=== PATIENT | female | born 1930 | race Caucasian/White ===

== ENCOUNTER 2017-01-06 19:07 | Inpatient (IN) | payer MEDICARE, OTHER ==
[~2017-01-06] VITALS: Ht 175.3 cm; Wt 81.6 kg
[2017-01-06 09:34] VITALS: BP 98/56
[~2017-01-06 19:07] MED LIST: ACET650T10 PO; ALEN70TA3 PO; ASPI81TA5 PO; ATOR10TA GT; BISA10SU8 RC; CELE200C PO; CLOT15CR4 TP; CYAN500T4 PO; DOCU-270 PO; DULO20CA PO; Fluconazole PO; GABA-536 PO; INSU100C7 SQ; MEMA5TAB PO; METO25TA20 PO; OLOP5DRO3 OP; OMEP20TA68 PO; POLY17PO4 PO
[2017-01-06 19:33] LABS: BASOPHILS # (AUTO) 0.5 /CMM (0.0-0.2); BASOPHILS % (AUTO) 3.1 % (0.0-2.0); EOSINOPHILS # (AUTO) 0.2 /CMM (0.0-0.7); EOSINOPHILS % (AUTO) 1.3 % (0.0-6.0); HEMATOCRIT 48 % (33-45); HEMOGLOBIN 16.2 g/dL (11.5-14.8); LYMPHOCYTES # (AUTO) 3.3 /CMM (0.8-4.8); LYMPHOCYTES % (AUTO) 20.1 % (20.0-44.0); MEAN CORPUSCULAR HEMOGLOBIN 29 PG (26.0-33.0); MEAN CORPUSCULAR HGB CONC 34 g/dl (31.0-36.0); MEAN CORPUSCULAR VOLUME 86 fL (82-100); MONOCYTES # (AUTO) 0.9 /CMM (0.1-1.30); MONOCYTES % (AUTO) 5.4 % (2.0-12.0); NEUTROPHILS # (AUTO) 11.4 /CMM (1.8-8.9); NEUTROPHILS % (AUTO) 70.1 % (43.0-81.0); PLATELET COUNT (AUTO) 301 /CMM (150-450); RDW COEFFICIENT OF VARIATION 12.6 (11.5-15.0); RED BLOOD CELL COUNT(AUTO) 5.54 MIL/uL (4.0-5.2); WHITE BLOOD COUNT (AUTO) 16.3 K/uL (4.3-11.0)
[2017-01-06 19:48] LABS: INR 0.99 (0.87-1.13); PROTHROMBIN TIME 10.3 SECS (9.5-12.7)
[2017-01-06 20:17] LABS: CALCIUM, SERUM 9.8 mg/dL (8.5-10.1); CARBON DIOXIDE 24 mmol/L (21-32); CHLORIDE 104 mmol/L (98-107); CREATININE 2.3 mg/dL (0.6-1.3); GLUCOSE 153 mg/dL (74-106); POTASSIUM 5.5 mmol/L (3.5-5.1); SODIUM SERUM 138 mmol/L (136-145); UREA NITROGEN, BLOOD 38 mg/dL (7-18)
[2017-01-06 20:22] LABS: ALANINE AMINOTRANSFERASE 64 U/L (12-78); ALBUMIN 3.5 g/dL (3.4-5.0); ALKALINE PHOSPHATASE 66 U/L (46-116); ASPARTATE AMINOTRANSFERASE 50 U/L (15-37); BILIRUBIN,DIRECT 0.1 mg/dL (0.0-0.2); BILIRUBIN,TOTAL 0.5 mg/dL (0.2-1.0); TOTAL PROTEIN, SERUM 7.4 g/dL (6.4-8.2)
[2017-01-06 20:24] LABS: TROPONIN I < 0.017 ng/mL (0.00-0.056)
[2017-01-06 21:18] LABS: APPEARANCE,URINE Clear (CLEAR); BILIRUBIN,URINE Negative (NEGATIVE); BLOOD, URINE Trace-intact Ery/uL (NEGATIVE); COLOR,URINE Yellow (YELLOW); KETONES,URINE Negative (NEGATIVE); LEUKOCYTE ESTERASE ,URINE Negative (NEGATIVE); NITRITE, URINE Positive (NEGATIVE); PH,URINE 5.5 (5.0-8.0); PROTEIN,URINE Trace mg/dl (NEGATIVE); UGLUCOSE Negative (NEGATIVE); UROBILINOGEN,URINE 0.2 EU/dL (0.2)
[2017-01-06 21:35] VITALS: BP 98/56
[2017-01-06 21:46] LABS: RBC,URINE 2-3/HPF /HPF (0-2); WBC,URINE 0-2 /HPF (0-3)
[2017-01-06 21:47] LABS: BACTERIA,URINE Many /HPF (None Seen); SQUAMOUS EPITHELIAL CELL,UR Few /HPF (None Seen); URINE AMORPHOUS URATE Few /HPF (None Seen)
[2017-01-07 02:16] VITALS: BP 105/56
[2017-01-07 04:00] VITALS: BP 129/79
[2017-01-07 06:53] LABS: BASOPHILS # (AUTO) 0.1 /CMM (0.0-0.2); BASOPHILS % (AUTO) 0.5 % (0.0-2.0); EOSINOPHILS # (AUTO) 0.4 /CMM (0.0-0.7); EOSINOPHILS % (AUTO) 3.4 % (0.0-6.0); HEMATOCRIT 44 % (33-45); HEMOGLOBIN 14.4 g/dL (11.5-14.8); LYMPHOCYTES # (AUTO) 4.7 /CMM (0.8-4.8); LYMPHOCYTES % (AUTO) 40.2 % (20.0-44.0); MEAN CORPUSCULAR HEMOGLOBIN 29 PG (26.0-33.0); MEAN CORPUSCULAR HGB CONC 33 g/dl (31.0-36.0); MEAN CORPUSCULAR VOLUME 89 fL (82-100); MONOCYTES # (AUTO) 1.2 /CMM (0.1-1.30); MONOCYTES % (AUTO) 10.6 % (2.0-12.0); NEUTROPHILS # (AUTO) 5.2 /CMM (1.8-8.9); NEUTROPHILS % (AUTO) 45.3 % (43.0-81.0); PLATELET COUNT (AUTO) 248 /CMM (150-450); RDW COEFFICIENT OF VARIATION 13.6 (11.5-15.0); RED BLOOD CELL COUNT(AUTO) 4.92 MIL/uL (4.0-5.2); WHITE BLOOD COUNT (AUTO) 11.6 K/uL (4.3-11.0)
[2017-01-07 07:32] LABS: ALANINE AMINOTRANSFERASE 55 U/L (12-78); ALKALINE PHOSPHATASE 49 U/L (46-116); ASPARTATE AMINOTRANSFERASE 37 U/L (15-37); BILIRUBIN,TOTAL 0.3 mg/dL (0.2-1.0); CALCIUM, SERUM 8.7 mg/dL (8.5-10.1); CARBON DIOXIDE 22 mmol/L (21-32); CHLORIDE 110 mmol/L (98-107); CREATININE 2.2 mg/dL (0.6-1.3); GLUCOSE 112 mg/dL (74-106); PHOSPHORUS 5.1 mg/dL (2.5-4.9); POTASSIUM 4.8 mmol/L (3.5-5.1); SODIUM SERUM 143 mmol/L (136-145); TOTAL PROTEIN, SERUM 6.7 g/dL (6.4-8.2); UREA NITROGEN, BLOOD 42 mg/dL (7-18)
[2017-01-07 08:00] VITALS: BP 102/53
[2017-01-07 09:39] LABS: CHOLESTEROL 173 mg/dL (<200); HDL CHOLESTEROL 28 mg/dL (40-60); LDL 109 mg/dL (0-99); TRIGLYCERIDES 247 mg/dL (30-150)
[2017-01-07 10:53] LABS: TROPONIN I < 0.017 ng/mL (0.00-0.056)
[2017-01-07 10:55] LABS: THYROID STIMULATING HORMONE 1.338 uIU/mL (0.358-3.74)
[2017-01-07 12:00] VITALS: BP 139/62
[2017-01-07 16:00] VITALS: BP 104/58
[2017-01-07 20:00] VITALS: BP 141/67
[2017-01-08 06:33] LABS: BASOPHILS % (AUTO) 0.5 % (0.0-2.0); EOSINOPHILS # (AUTO) 0.4 /CMM (0.0-0.7); HEMATOCRIT 39 % (33-45); HEMOGLOBIN 13.1 g/dL (11.5-14.8); LYMPHOCYTES # (AUTO) 3.2 /CMM (0.8-4.8); LYMPHOCYTES % (AUTO) 34.3 % (20.0-44.0); MEAN CORPUSCULAR HEMOGLOBIN 30 PG (26.0-33.0); MEAN CORPUSCULAR HGB CONC 34 g/dl (31.0-36.0); MEAN CORPUSCULAR VOLUME 88 fL (82-100); MONOCYTES # (AUTO) 0.7 /CMM (0.1-1.30); MONOCYTES % (AUTO) 7.5 % (2.0-12.0); NEUTROPHILS % (AUTO) 53.7 % (43.0-81.0); PLATELET COUNT (AUTO) 218 /CMM (150-450); RDW COEFFICIENT OF VARIATION 13.5 (11.5-15.0); WHITE BLOOD COUNT (AUTO) 9.4 K/uL (4.3-11.0)
[2017-01-08 06:58] LABS: TROPONIN I < 0.017 ng/mL (0.00-0.056)
[2017-01-08 07:00] LABS: ALANINE AMINOTRANSFERASE 44 U/L (12-78); ALBUMIN 2.7 g/dL (3.4-5.0); ALKALINE PHOSPHATASE 50 U/L (46-116); ASPARTATE AMINOTRANSFERASE 26 U/L (15-37); BILIRUBIN,TOTAL 0.3 mg/dL (0.2-1.0); CALCIUM, SERUM 8.5 mg/dL (8.5-10.1); CARBON DIOXIDE 21 mmol/L (21-32); CHLORIDE 112 mmol/L (98-107); CREATININE 1.3 mg/dL (0.6-1.3); GLUCOSE 132 mg/dL (74-106); PHOSPHORUS 2.8 mg/dL (2.5-4.9); POTASSIUM 4.4 mmol/L (3.5-5.1); SODIUM SERUM 143 mmol/L (136-145); TOTAL PROTEIN, SERUM 6.2 g/dL (6.4-8.2); UREA NITROGEN, BLOOD 32 mg/dL (7-18)
[2017-01-08 08:00] VITALS: BP_SYST 139; BP_SYST 157; BP_SYST 158; BP_DIAS 101; BP_DIAS 66; BP_DIAS 74; BP_DIAS 78
[2017-01-08 16:00] VITALS: BP 140/84
[2017-01-08 18:00] VITALS: BP 140/84
[2017-01-08 20:00] VITALS: BP 154/70
[2017-01-09 07:19] VITALS: BP_SYST 153; BP_SYST 155; BP_DIAS 82; BP_DIAS 96
[2017-01-09 07:49] LABS: BASOPHILS % (AUTO) 0.3 % (0.0-2.0); EOSINOPHILS # (AUTO) 0.4 /CMM (0.0-0.7); EOSINOPHILS % (AUTO) 3.6 % (0.0-6.0); HEMATOCRIT 39 % (33-45); HEMOGLOBIN 13.5 g/dL (11.5-14.8); LYMPHOCYTES # (AUTO) 3.6 /CMM (0.8-4.8); LYMPHOCYTES % (AUTO) 31.2 % (20.0-44.0); MEAN CORPUSCULAR HEMOGLOBIN 30 PG (26.0-33.0); MEAN CORPUSCULAR HGB CONC 34 g/dl (31.0-36.0); MEAN CORPUSCULAR VOLUME 87 fL (82-100); MONOCYTES # (AUTO) 0.9 /CMM (0.1-1.30); MONOCYTES % (AUTO) 7.5 % (2.0-12.0); NEUTROPHILS # (AUTO) 6.6 /CMM (1.8-8.9); NEUTROPHILS % (AUTO) 57.4 % (43.0-81.0); PLATELET COUNT (AUTO) 236 /CMM (150-450); RDW COEFFICIENT OF VARIATION 13.2 (11.5-15.0); WHITE BLOOD COUNT (AUTO) 11.4 K/uL (4.3-11.0)
[2017-01-09 08:00] VITALS: BP_SYST 148; BP_SYST 149; BP_SYST 167; BP_DIAS 66; BP_DIAS 80; BP_DIAS 84
[2017-01-09 08:04] LABS: ALANINE AMINOTRANSFERASE 50 U/L (12-78); ALKALINE PHOSPHATASE 61 U/L (46-116); ASPARTATE AMINOTRANSFERASE 33 U/L (15-37); BILIRUBIN,TOTAL 0.4 mg/dL (0.2-1.0); CALCIUM, SERUM 8.3 mg/dL (8.5-10.1); CARBON DIOXIDE 21 mmol/L (21-32); CHLORIDE 108 mmol/L (98-107); CREATININE 0.9 mg/dL (0.6-1.3); GLUCOSE 130 mg/dL (74-106); MAGNESIUM 1.5 mg/dL (1.8-2.4); POTASSIUM 4.2 mmol/L (3.5-5.1); SODIUM SERUM 140 mmol/L (136-145); TOTAL PROTEIN, SERUM 6.7 g/dL (6.4-8.2); UREA NITROGEN, BLOOD 19 mg/dL (7-18)
[2017-01-09] MEDS ORDERED: NITR100C6 PO (11:35)
[2017-01-09 16:00] VITALS: BP 137/84
[2017-01-09 17:06] VITALS: BP 137/84
== END 2017-01-09 18:24 | DRG 177 ==
LOC: ER 19:09 → TELE 20:42 → MED 01-07 13:09
PROVIDERS: ADMIT Internal Medicine; ATTEND Internal Medicine
DX: J69.0 Pneumonitis due to inhalation of food and vomit (principal); N17.0 Acute kidney failure with tubular necrosis; E87.2 Acidosis; G93.41 Metabolic encephalopathy; N39.0 Urinary tract infection, site not specified; I42.9 Cardiomyopathy, unspecified; F03.90 Unspecified dementia, unspecified severity, without behavioral disturbance, psychotic disturbance, mood disturbance, and anxiety; E11.9 Type 2 diabetes mellitus without complications; E78.5 Hyperlipidemia, unspecified; E86.0 Dehydration; E87.5 Hyperkalemia; I10 Essential (primary) hypertension; I67.2 Cerebral atherosclerosis; K21.9 Gastro-esophageal reflux disease without esophagitis; K57.30 Diverticulosis of large intestine without perforation or abscess without bleeding; M81.0 Age-related osteoporosis without current pathological fracture; Z88.1 Allergy status to other antibiotic agents; Z88.0 Allergy status to penicillin; Z79.4 Long term (current) use of insulin
CPT/HCPCS: 36415; 70450-TC; 71010-TC; 71250-TC; 80048-TC; 80053-TC; 80061-TC; 80076-TC; 81000-TC; 82962-TC; 83605-TC; 83735-TC; 84100-TC; 84439-TC; 84443-TC; 84484-TC; 85025-TC; 85652-TC; 85730-TC; 87040-TC; 87081-TC; 87086-TC; 92611-TC; 93307-TC; 93880-TC; A4216; A4606; J1644; J1650; J1815; J2185; J3370; J3475; J3490; J7030; J7040; J7060; Z7610

== ENCOUNTER 2017-01-23 13:18 | Emergency (ER) | payer MEDICARE, OTHER ==
[~2017-01-23] VITALS: Ht 165.1 cm; Wt 81.6 kg
[~2017-01-23 13:18] MED LIST changes: -ATOR10TA GT; +ATOR10TA PO; +NITR100C6 PO
--- NOTE | 2017-01-23 13:45 | NUR ---
BIB [facility] C/O HEADACHE S/P TRIP AND FALL, DENIES LOC, NECK, OR BACK PAIN. A/OX 4. BREATHING EVEN AND UNLABORED. NO SOB. VITALS STABLE. SAFETY AND COMFORT MEASURES IN PLACE. AWAITING MD ORDERS.
[2017-01-23] MEDS ORDERED: POLY15DR40 EACHEYE (14:26)
[2017-01-23] MEDS ORDERED: OMEG1CAP PO (14:26)
[2017-01-23] MEDS ORDERED: INSU100V11 SQ ×2 (14:26)
[2017-01-23] MEDS ORDERED: CALC-7 PO (14:26)
[2017-01-23] MEDS ORDERED: MELO-270 PO (14:26)
[2017-01-23] MEDS ORDERED: INSU100V7 SQ (14:26)
[2017-01-23] MEDS ORDERED: LISI40TA4 PO (14:26)
[2017-01-23] MEDS ORDERED: BLOO-668 IN (14:26)
--- NOTE | 2017-01-23 14:45 | NUR ---
patient taken to ct via stretcher.
--- NOTE | 2017-01-23 14:55 | NUR ---
patient returned from ct.
--- NOTE | 2017-01-23 16:24 | NUR ---
CALLED [facility] FOR TRANSPORTATION GOING BACK TO [facility] ETA 1800
--- NOTE | 2017-01-23 16:35 | NUR ---
PAGED PATIENT'S PCP DR ARIAS
--- NOTE | 2017-01-23 17:30 | NUR ---
CONFIRMED WITH PCP, TRANG EMERY FOR DISCHARGE.
--- NOTE | 2017-01-23 18:57 | NUR ---
Patient discharged to assisted living in stable condition. Written and verbal after care instructions given. Patient's PMD is aware of the discharge back to [place]; Ml [facility]ISON
[2017-01-23 19:00] VITALS: BP 137/78
== END 2017-01-23 18:59 | disposition home or self-care (01) ==
LOC: ER 13:20
DX: S09.90XA Unspecified injury of head, initial encounter (principal); R51 Headache; E11.9 Type 2 diabetes mellitus without complications; E78.5 Hyperlipidemia, unspecified; F03.90 Unspecified dementia, unspecified severity, without behavioral disturbance, psychotic disturbance, mood disturbance, and anxiety; I10 Essential (primary) hypertension; I42.9 Cardiomyopathy, unspecified; F32.9 Major depressive disorder, single episode, unspecified; K21.9 Gastro-esophageal reflux disease without esophagitis; M81.0 Age-related osteoporosis without current pathological fracture; Z79.4 Long term (current) use of insulin; Z79.82 Long term (current) use of aspirin; Z88.0 Allergy status to penicillin; Z88.1 Allergy status to other antibiotic agents; W01.0XXA Fall on same level from slipping, tripping and stumbling without subsequent striking against object, initial encounter; Y93.89 Activity, other specified; Y92.89 Other specified places as the place of occurrence of the external cause; Y99.9 Unspecified external cause status
CPT/HCPCS: 70450-TC; A4606; Z7610

== ENCOUNTER 2018-01-14 16:32 | Inpatient (IN) | payer MEDICARE, OTHER ==
[~2018-01-14] VITALS: Ht 165.1 cm; Wt 74.8 kg
[~2018-01-14 16:32] MED LIST changes: -BISA10SU8 RC; +BLOO-668 IN; +CALC-7 PO; -CELE200C PO; -CLOT15CR4 TP; -DULO20CA PO; -Fluconazole PO; +INSU100V11 SQ; +INSU100V7 SQ; +LISI40TA4 PO; +MELO-105 PO; -NITR100C6 PO; -OLOP5DRO3 OP; +OMEG1CAP PO; -OMEP20TA68 PO; +POLY15DR40 EACHEYE; -POLY17PO4 PO
--- NOTE | 2018-01-14 16:35 | NUR ---
NAD NOTED, VSS, RESP EVEN AND UNLABORED, PT WAS PUT ON MONITOR, WAITING FOR MD EVAL. [place] PRIVATE EMT FROM [facility], ABDOMINAL X 3 DAYS ABN. LABS (BUN/CREA= /1.51)
[2018-01-14 17:26] LABS: BASOPHILS # (AUTO) 0.1 /CMM (0.0-0.2); BASOPHILS % (AUTO) 0.9 % (0.0-2.0); EOSINOPHILS % (AUTO) 5.3 % (0.0-6.0); HEMATOCRIT 47 % (33-45); HEMOGLOBIN 15.8 g/dL (11.5-14.8); LYMPHOCYTES # (AUTO) 3.2 /CMM (0.8-4.8); LYMPHOCYTES % (AUTO) 34.4 % (20.0-44.0); MEAN CORPUSCULAR HEMOGLOBIN 28 PG (26.0-33.0); MEAN CORPUSCULAR HGB CONC 34 g/dl (31.0-36.0); MEAN CORPUSCULAR VOLUME 85 fL (82-100); MONOCYTES # (AUTO) 0.8 /CMM (0.1-1.30); MONOCYTES % (AUTO) 8.4 % (2.0-12.0); NEUTROPHILS # (AUTO) 4.7 /CMM (1.8-8.9); PLATELET COUNT (AUTO) 304 /CMM (150-450); RDW COEFFICIENT OF VARIATION 12.9 (11.5-15.0); RED BLOOD CELL COUNT(AUTO) 5.55 MIL/uL (4.0-5.2); WHITE BLOOD COUNT (AUTO) 9.3 K/uL (4.3-11.0)
[2018-01-14] MEDS ORDERED: IOHEXOL-300 100 ML VIAL IV ONE (17:36)
[2018-01-14 17:40] LABS: ALANINE AMINOTRANSFERASE 51 U/L (12-78); ALBUMIN 3.3 g/dL (3.4-5.0); ALKALINE PHOSPHATASE 92 U/L (46-116); ASPARTATE AMINOTRANSFERASE 37 U/L (15-37); BILIRUBIN,DIRECT 0.1 mg/dL (0.0-0.2); BILIRUBIN,TOTAL 0.3 mg/dL (0.2-1.0); CALCIUM, SERUM 9.4 mg/dL (8.5-10.1); CARBON DIOXIDE 27 mmol/L (21-32); CHLORIDE 100 mmol/L (98-107); CREATININE 1.3 mg/dL (0.6-1.3); LIPASE 349 U/L (73-393); POTASSIUM 3.8 mmol/L (3.5-5.1); SODIUM SERUM 132 mmol/L (136-145); TOTAL PROTEIN, SERUM 7.7 g/dL (6.4-8.2); UREA NITROGEN, BLOOD 28 mg/dL (7-18)
[2018-01-14 17:41] LABS: GLUCOSE 368 mg/dL (74-106); INR 0.94 (0.85-1.15)
[2018-01-14] MEDS ORDERED: IV NS 0.9% 500 ML BAG IV ONE (18:00)
[2018-01-14 18:56] LABS: APPEARANCE,URINE Slightly Cloudy (CLEAR); BILIRUBIN,URINE Negative (NEGATIVE); BLOOD, URINE Trace-intact Ery/uL (NEGATIVE); COLOR,URINE Yellow (YELLOW); KETONES,URINE Negative (NEGATIVE); LEUKOCYTE ESTERASE ,URINE Negative (NEGATIVE); NITRITE, URINE Positive (NEGATIVE); PROTEIN,URINE 30 mg/dl (NEGATIVE); UGLUCOSE 500 MG/DL mg/dL (NEGATIVE); UROBILINOGEN,URINE 0.2 EU/dL (0.2)
[2018-01-14] MEDS ORDERED: Z GUARD REMEDY 2 OZ OINT TP PRN (19:00)
[2018-01-14] MEDS ORDERED: MAG HYDROX/AL HYDROX/SIMETH 30 ML UDC PO PRN (19:00)
[2018-01-14] MEDS ORDERED: MAGNESIUM HYDROXIDE 30 ML UDC PO PRN (19:00)
[2018-01-14] MEDS ORDERED: ONDANSETRON HCL/PF 4 MG/2 ML VIAL IVP PRN (19:00)
[2018-01-14] MEDS ORDERED: HYDROCODONE/APAP 5/325MG 1 EACH TABLET PO PRN (19:00)
[2018-01-14] MEDS ORDERED: Medication Not On Formulary EA (Acetaminophen 650 MG) PO PRN (19:00)
[2018-01-14] MEDS ORDERED: ACETAMINOPHEN 325 MG TABLET PO PRN (19:00)
[2018-01-14] MEDS ORDERED: ZOLPIDEM TARTRATE 5 MG TABLET PO PRN (19:00)
[2018-01-14] MEDS ORDERED: DULO20CA PO (19:12)
[2018-01-14 19:16] LABS: BACTERIA,URINE Many /HPF (None Seen); SQUAMOUS EPITHELIAL CELL,UR Few /HPF (None Seen); URINE AMORPHOUS URATE Few /HPF (None Seen)
--- NOTE | 2018-01-14 19:29 | NUR ---
PT RESTING EYES CLOSED, EASILY AWAKEN WITH VERBAL STIMULI. ABD PAIN 10 & THONY WELL. DENIES CP, SOB, DIZZINESS, N/V/D @ THIS TIME. WILL CONT TO MONITOR.
[2018-01-14] MEDS ORDERED: MEROPENEM 500 MG in IV NS 0.9% 50 ML IV ONE (19:30)
--- NOTE | 2018-01-14 20:06 | NUR ---
Jose morales in ED - 01/14/18 at 2007 by ALFREDA PT IS ASSIGNED TO MED SURG RM#: [id number] CYSTITIS, DEHYDRATION, HYPERGLYCEMIA, AND ACCEPTING MD: DR ARIAS
--- NOTE | 2018-01-14 20:07 | NUR ---
PT IS ASSIGNED TO MED SURG RM#[id number], Dx: ACUTE CYSTITIS, DEHYDRATION, HYPERGLYCEMIA, AND ACCEPTING MD: DR ARIAS
[2018-01-14 21:30] VITALS: BP 148/78
--- NOTE | 2018-01-14 21:30 | NUR ---
MS RN NOTES PT RECEIVE VIA GURNEY FROM [facility] WITH 1 TRANSPORTATION MARIO ALBERTO. ADMIT TO M/S WITH DIAGNOSIS OF UTI, PT A/O X3 WITH PERIOD OF FORGETFULNESS, TOLERATING ROOM AIR 98%. HEAD TO TOE ASSESSMENT IS DONE SKIN IS INTACT, RESPIRATIONS EVEN AND UNLABORED NO COMPLAIN OF PAIN AT THIS TIME. PT GIVEN 1 TUNA SANDWICH AND 8 OZ OF APPLE JUICE,. NEEDS ATTENDED AND ANTICIPATED, KEPT CLEAN AND COMFORTABLE, F/C INTACT DRAINING YELLOW VIA GRAVITY WITH NO SEDIMENTS NO HEMATURIA,NO CLOUDINESS, SAFETY MEASURES IN PLACE. WILL CONTINUE TO MONITOR.
[2018-01-14] MEDS: ATORVASTATIN 10 MG TABLET PO SCH (21:39)
[2018-01-14] MEDS: BLOOD SUGAR DIAGNOSTIC 1 EACH STRIP IN SCH (21:41)
[2018-01-14] MEDS: METOPROLOL TARTRATE 25 MG TABLET PO SCH (21:41)
[2018-01-14] MEDS ORDERED: INSULIN GLARGINE, 100 UNIT/ML CARTRIDGE SQ SCH (22:00)
[2018-01-14] MEDS ORDERED: GABAPENTIN 400 MG CAPSULE ONE (22:07)
[2018-01-14] MEDS: GABAPENTIN 400 MG CAPSULE PO SCH (22:09)
--- NOTE | 2018-01-14 22:09 | NUR ---
MS RN NOTES GABAPENTIN OVERRIDE 400 MG GIVEN PO.
[2018-01-14] MEDS: IV NS 0.9% 1,000 ML IV PRN (22:10)
[2018-01-14] MEDS: CEFTRIAXONE 1 G in IV D5W 50 ML IV SCH (23:46)
[2018-01-15] MEDS: BLOOD SUGAR DIAGNOSTIC 1 EACH STRIP IN SCH ×4 (05:37→21:11)
--- NOTE | 2018-01-15 05:56 | NUR ---
MS RN CLOSING NOTES ASLEEP AND EASILY AWAKEN, STABLE, TOLERATING ROOM AIR 100%. NOT IN DISTRESS. RESPIRATION EVEN AND UNLABORED. KEPT CLEAN AND DRY AND COMFORTABLE, ALL NURSING CARE RENDERED. NEEDS ATTENDED AND ANTICIPATED. REPOSITIONED EVERY 2 HOURS. GOOD SKIN CARE PROVIDED. F/C INTACT DRAINING YELLOW VIA GRAVITY WITH NO SEDIMENTS, NO HEMATURIA, NO CLOUDINESS. ON LOW BED AT ALL TIMES TO ENSURE SAFETY. SAFE HAZARD FREE ENVIRONMENT PROVIDED. CALL LIGHT WITHIN EASY TO REACH. WILL ENDORSE NEXT SHIFT CONTINUITY OF CARE.
[2018-01-15 08:00] VITALS: BP 155/81
--- NOTE | 2018-01-15 08:00 | NUR ---
MS RN NOTES PT A/O X3 WITH PERIOD OF FORGETFULNESS, TOLERATING ROOM AIR 98%. HEAD TO TOE ASSESSMENT IS DONE SKIN IS INTACT WITH SACRAL SCAR.-SEEN BY WOUND LOCK STITCH CHANNELER,[place]. RESPIRATIONS EVEN AND UNLABORED NO COMPLAIN OF PAIN AT THIS TIME. NEEDS ATTENDED AND ANTICIPATED, KEPT CLEAN AND COMFORTABLE, F/C INTACT DRAINING YELLOW VIA GRAVITY WITH NO SEDIMENTS NO HEMATURIA,NO CLOUDINESS, SAFETY MEASURES IN PLACE. CALL LIGHT PLACED WITHIN REACH.WILL CONTINUE TO MONITOR.
--- NOTE | 2018-01-15 08:25 | NUR ---
WOUND CARE CONSULT: PT PRESENTS WITH THICKENED RT GREAT TOENAIL. NO TENDERNESS NOTED. PT INCONTINENT. SACRAL/BUTTOCKS SCARRING NOTED. WILL SEE PRN. ALL SKIN PROTECTION RECOMMENDATIONS DISCUSSED WITH NURSING STAFF. PT ON DANILO ISOFLEX LOW AIRLOSS BED. CURRENT ELIZ SCORE IS 16. Addendum: 01/15/18 at 0828 by NYA LENZ WNDNU Amended: Links added.
[2018-01-15] MEDS ORDERED: CALCIUM CARB 250MG /VITAMIN D 1 UDTAB PO SCH (09:00)
[2018-01-15] MEDS ORDERED: MELOXICAM 7.5 MG TABLET PO SCH (09:00)
[2018-01-15] MEDS ORDERED: LISINOPRIL (20MG) 20 MG TABLET PO SCH (09:00)
[2018-01-15] MEDS ORDERED: Medication Not On Formulary EA (Omega-3 Fatty Acids/Fish Oil (Fish Oil 1,000 Mg Capsule) PO SCH (09:00)
[2018-01-15] MEDS ORDERED: INSULIN GLARGINE HUM REC ANLOG 50 UNIT SQ SCH (09:00)
[2018-01-15 09:25] LABS: BASOPHILS # (AUTO) 0.1 /CMM (0.0-0.2); BASOPHILS % (AUTO) 0.7 % (0.0-2.0); EOSINOPHILS % (AUTO) 5.1 % (0.0-6.0); HEMATOCRIT 48 % (33-45); HEMOGLOBIN 15.4 g/dL (11.5-14.8); LYMPHOCYTES % (AUTO) 32.1 % (20.0-44.0); MEAN CORPUSCULAR HEMOGLOBIN 28 PG (26.0-33.0); MEAN CORPUSCULAR HGB CONC 32 g/dl (31.0-36.0); MEAN CORPUSCULAR VOLUME 88 fL (82-100); MONOCYTES # (AUTO) 0.7 /CMM (0.1-1.30); MONOCYTES % (AUTO) 7.7 % (2.0-12.0); NEUTROPHILS % (AUTO) 54.4 % (43.0-81.0); PLATELET COUNT (AUTO) 300 /CMM (150-450); RDW COEFFICIENT OF VARIATION 13.9 (11.5-15.0); RED BLOOD CELL COUNT(AUTO) 5.53 MIL/uL (4.0-5.2); WHITE BLOOD COUNT (AUTO) 9.2 K/uL (4.3-11.0)
[2018-01-15] MEDS: DOCUSATE SODIUM 100 MG CAPSULE PO SCH ×2 (09:25→17:14)
[2018-01-15] MEDS: MEMANTINE HCL 5 MG TABLET PO SCH ×2 (09:26→17:14)
[2018-01-15] MEDS: CYANOCOBALAMIN 500 MCG TABLET PO SCH (09:26)
[2018-01-15] MEDS: METOPROLOL TARTRATE 25 MG TABLET PO SCH ×2 (09:26→21:11)
[2018-01-15] MEDS: ASPIRIN EC 81 MG TABLET.DR PO SCH (09:26)
[2018-01-15] MEDS: GABAPENTIN 400 MG CAPSULE PO SCH ×2 (09:29→21:11)
[2018-01-15] MEDS: INSULIN ASPART/LISPRO 100 UNIT/ML CARTRIDGE SQ SCH ×3 (09:34→17:15)
[2018-01-15 09:43] LABS: ALANINE AMINOTRANSFERASE 41 U/L (12-78); ALBUMIN 3.1 g/dL (3.4-5.0); ALKALINE PHOSPHATASE 70 U/L (46-116); ASPARTATE AMINOTRANSFERASE 31 U/L (15-37); BILIRUBIN,TOTAL 0.4 mg/dL (0.2-1.0); CARBON DIOXIDE 24 mmol/L (21-32); CHLORIDE 102 mmol/L (98-107); CHOLESTEROL 206 mg/dL (<200); GLUCOSE 240 mg/dL (74-106); HDL CHOLESTEROL 33 mg/dL (40-60); LDL 153 mg/dL (0-99); POTASSIUM 3.5 mmol/L (3.5-5.1); SODIUM SERUM 137 mmol/L (136-145); TOTAL PROTEIN, SERUM 7.4 g/dL (6.4-8.2); TRIGLYCERIDES 239 mg/dL (30-150); UREA NITROGEN, BLOOD 20 mg/dL (7-18)
[2018-01-15] MEDS: IV NS 0.9% 1,000 ML IV PRN (13:29)
[2018-01-15 16:00] VITALS: BP 149/74
--- NOTE | 2018-01-15 19:30 | NUR ---
PATIENT RECEIVED IN BED AWAKE, AO X 2, ABLE TO MAKE NEEDS KNOWN. NO ACUTE DISTRESS NOTED. DENIES ANY PAIN AT THIS TIME. NO SYMPTOMS OF HYPER/HYPOGLYCEMIA. IV SITE PATENT, INTACT; IVF INFUSING ORDERED. [place] CATH PATENT, INTACT; DRAINING CLEAR YELLOW URINE. SAFETY REMINDERS GIVEN. ON LOW BED WITH BILATERAL UPPER SIDE RAILS UP. CALL RIDLEY WITHIN EASY REACH. WILL CONTINUE TO MONITOR.
--- NOTE | 2018-01-15 19:35 | NUR ---
PT RESTING IN BED WITH ONGOING IVF NS AT 75 ML/HR INFUSING WELL.DENIES PAIN OR DISTRESS.CALL LIGHT PLACED WITHIN REACH.
[2018-01-15 20:00] VITALS: BP 149/73
[2018-01-15] MEDS: ATORVASTATIN 10 MG TABLET PO SCH (21:11)
[2018-01-15] MEDS: INSULIN GLARGINE, 100 UNIT/ML CARTRIDGE SQ SCH (21:15)
[2018-01-15] MEDS: CEFTRIAXONE 1 G in IV D5W 50 ML IV SCH (22:01)
[2018-01-16] MEDS: IV NS 0.9% 1,000 ML IV PRN ×2 (03:07→17:15)
[2018-01-16] MEDS: BLOOD SUGAR DIAGNOSTIC 1 EACH STRIP IN SCH ×4 (06:30→21:22)
--- NOTE | 2018-01-16 06:45 | NUR ---
PATIENT ASLEEP, EASILY AROUSABLE. RESPIRATIONS EVEN. NO SIGNS OF PAIN NOTED. DUE MEDS GIVEN WITH NO ASE NOTED. IVF INFUSING ORDERED. NEEDS ATTENDED. KEPT CLEAN, DRY, AND COMFORTABLE. SAFETY PRECAUTIONS AND COMFORT MEASURES IN PLACE. WILL GIVE REPORT TO DAY SHIFT FOR CONTINUITY OF CARE.
[2018-01-16 08:00] VITALS: BP 145/72
[2018-01-16] MEDS: INSULIN ASPART/LISPRO 100 UNIT/ML CARTRIDGE SQ SCH ×3 (08:00→17:19)
--- NOTE | 2018-01-16 08:24 | NUR ---
RN NOTES INSULIN HELD AT THIS TIME, DUE TO PATIENT REFUSING TO EAT BREAKFAST. WILL MONITOR FOR S/SX OF HYPO/HYPERGLYCEMIA
[2018-01-16] MEDS: METOPROLOL TARTRATE 25 MG TABLET PO SCH ×2 (08:50→21:22)
[2018-01-16] MEDS: CYANOCOBALAMIN 500 MCG TABLET PO SCH (08:50)
[2018-01-16] MEDS: ASPIRIN EC 81 MG TABLET.DR PO SCH (08:50)
[2018-01-16] MEDS: MEMANTINE HCL 5 MG TABLET PO SCH ×2 (08:50→17:10)
[2018-01-16] MEDS: GABAPENTIN 400 MG CAPSULE PO SCH ×2 (08:50→21:22)
[2018-01-16] MEDS: DOCUSATE SODIUM 100 MG CAPSULE PO SCH ×2 (08:50→17:10)
[2018-01-16 16:00] VITALS: BP 144/69
--- NOTE | 2018-01-16 18:30 | NUR ---
RN NOTES PATIENT A/OX2, SLEEPING INTERMITTENTLY, ABLE TO VERBALIZE NEEDS, TURNED AND REPOSITION EVERY 2 HOURS, KEPT COMFORTABLE, CALL LIGHT WITHIN REACH, WILL ENDORSE TO SECURITY ORDERLY FOR MIGEL.
--- NOTE | 2018-01-16 19:20 | NUR ---
RN INITIAL NOTES: RECEIVED REPORT FROM VICTOR MANUEL DON. PT IN BED, SLEEPING, AROUSES TO TACTILE STIMULI. PT IS A/O X 2, ON RA RESPIRATION EVEN AND UNLABORED. LEFT WRIST IV ACCESS G20 PATENT AND FLUSHING WELL, NO S/S OF INFILTRATION OR REDNESS NOTED. PT APPEARS CALM AND COMFORTABLE. BLE OFFLOADED. [place] CATHETER IN PLACED, DRAINING INTO YELLOW COLORED URINE. SAFETY PRECAUTIONS FOR FALL INITIATED, CALL LIGHT IN REACH, WILL CONTINUE MONITORING PT.
[2018-01-16 20:00] VITALS: BP 142/82
[2018-01-16 21:17] VITALS: BP 163/80
[2018-01-16] MEDS: ATORVASTATIN 10 MG TABLET PO SCH (21:22)
[2018-01-16] MEDS: INSULIN GLARGINE, 100 UNIT/ML CARTRIDGE SQ SCH (21:53)
--- NOTE | 2018-01-16 21:54 | NUR ---
non administration of lantus 38 units: checked pt's blood sugar and result obtained was 105. pt has a schedule lantus 38units for tonight, pt stated she's not comfortable receiving the lantus as her blood sugar is good/normal. Lantus 38 units not administered at this time due to risk for hypoglycemia. Will monitor pt for any s/s of hypoglycemia or hyperglycemia
--- NOTE | 2018-01-16 22:00 | NUR ---
RN NOTES: PROVIDED PT WITH JELL O AND EGG SAND WHICH PER PT REQUEST, PT CONSUMED MEAL 100%, NO ASPIRATION NOTED.
[2018-01-16] MEDS: CEFTRIAXONE 1 G in IV D5W 50 ML IV SCH (22:09)
[2018-01-17] MEDS: IV NS 0.9% 1,000 ML IV PRN (05:52)
--- NOTE | 2018-01-17 06:59 | NUR ---
RN CLOSING NOTES: PT IN BED, REMAINS A/O X2, DENIES ANY SOB, DENIES ANY CHEST PAIN OR DISCOMFORT AT THIS TIME. IV ACCESS ON LEFT WRIST G20 REMAINS PATENT AND FLUSHING WELL, INFUSING WITH NS AT 75ML/HR. BLE OFFLOADED. [place] CATHETER REMAINS IN PLACED, BAG EMPTIED BY PRODUCT DEVELOPER. VS REMAINS STABLE, NEEDS ATTENDED. SAFETY PRECAUTIONS FOR FALL REMAINS ENGAGED, CALL LIGHT IN REACH, WILL ENDORSE TO DAY RN FOR CONTINUITY OF CARE.
--- NOTE | 2018-01-17 07:40 | NUR ---
RN OPENING NOTES RECEIVED PATIENT RESTING IN BED, A/OX2-3. NO ACUTE DISTRESS, NO SOB, DENIED PAIN OR DISCOMFORT AT THIS TIME. IV SITE INTACT AND PATENT. [place] IN PLACE DRAINING CLEAR YELLOW URINE. KEPT PATIENT SAFE AND COMFORTABLE. BED IN LOW/LOCKED POSITION, SIDERAILS UPX2, CALL LIGHT IN REACH. WILL CONTINUE TO MONITOR ACCORDINGLY
[2018-01-17 08:00] VITALS: BP 159/98
[2018-01-17 08:28] VITALS: BP 159/98
[2018-01-17] MEDS: METOPROLOL TARTRATE 25 MG TABLET PO SCH (08:28)
[2018-01-17] MEDS: GABAPENTIN 400 MG CAPSULE PO SCH (08:28)
[2018-01-17] MEDS: MEMANTINE HCL 5 MG TABLET PO SCH (08:29)
[2018-01-17] MEDS: ASPIRIN EC 81 MG TABLET.DR PO SCH (08:30)
[2018-01-17] MEDS: DOCUSATE SODIUM 100 MG CAPSULE PO SCH (08:30)
[2018-01-17] MEDS: CYANOCOBALAMIN 500 MCG TABLET PO SCH (08:30)
[2018-01-17] MEDS: INSULIN ASPART/LISPRO 100 UNIT/ML CARTRIDGE SQ SCH ×2 (08:41→12:31)
[2018-01-17] MEDS: BLOOD SUGAR DIAGNOSTIC 1 EACH STRIP IN SCH ×2 (08:44→12:28)
--- NOTE | 2018-01-17 08:55 | NUR ---
DR ARIAS AT BEDSIDE TALKING TO PATIENT. Emi/C OCTAVIO PER .
--- NOTE | 2018-01-17 09:15 | NUR ---
RN NOTES D/C [place], NO BLEEDING, NO COMPLICATIONS. TOLERATED WELL.
--- NOTE | 2018-01-17 15:30 | NUR ---
Discharged patient in stable condition picked up by 2 ambulance crew, patient going back to [facility]. Discharge paperwork and all belongings returned and given to playground attendant. Report given to FLORENICA Hernandez from [facility], [place] instructions given to patient and SNF RN, verbalized understanding. Removed iv, applied pressure, no bleeding, no complications. Removed name band. Photos taken
[2018-01-20] MEDS ORDERED: ALENDRONATE 70 MG TABLET PO SCH (07:30)
== END 2018-01-17 15:30 | DRG 689 ==
LOC: ER 16:35 → MEDSG2 20:15
PROVIDERS: ADMIT Internal Medicine; ATTEND Internal Medicine
DX: N39.0 Urinary tract infection, site not specified (principal); N17.0 Acute kidney failure with tubular necrosis; E11.65 Type 2 diabetes mellitus with hyperglycemia; K57.90 Diverticulosis of intestine, part unspecified, without perforation or abscess without bleeding; K21.9 Gastro-esophageal reflux disease without esophagitis; F03.90 Unspecified dementia, unspecified severity, without behavioral disturbance, psychotic disturbance, mood disturbance, and anxiety; I10 Essential (primary) hypertension; E78.5 Hyperlipidemia, unspecified; M81.0 Age-related osteoporosis without current pathological fracture; E88.09 Other disorders of plasma-protein metabolism, not elsewhere classified; Z88.0 Allergy status to penicillin; Z79.4 Long term (current) use of insulin; B96.20 Unspecified Escherichia coli [E. coli] as the cause of diseases classified elsewhere
CPT/HCPCS: 36415; 71045-TC; 80048-TC; 80053-TC; 80061-TC; 80076-TC; 81000-TC; 82962-TC; 83690-TC; 83735-TC; 84100-TC; 85025-TC; 85730-TC; 87081-TC; 87086-TC; 87186-TC; 97110-TC; 97112-TC; 97530-TC; A4216; A4606; J0696; J1815; J2185; J7030; J7040; J7060; Q9967; Z7610

== ENCOUNTER 2018-04-29 06:05 | Inpatient (IN) | payer MEDICARE, OTHER ==
[~2018-04-29] VITALS: Ht 165.1 cm; Wt 78.0 kg
[~2018-04-29 06:05] MED LIST changes: -CALC-7 PO; +DULO20CA PO; -INSU100V7 SQ; -LISI40TA4 PO; -MELO-105 PO; -OMEG1CAP PO; -POLY15DR40 EACHEYE
--- NOTE | 2018-04-29 06:20 | NUR ---
PT [facility]IB[facility] C/O L ABD PAIN, TENDER TO PALPATION. MINIMAL RELIEF WITH NORCO 3/325, -N/V/D. PT AOX2. PT ON MONITOR IN BED 7. WILL CONTINUE TO MONITOR.
--- NOTE | 2018-04-29 06:25 | NUR ---
BLOOD DRAWN AND GIVEN TO LAB
[2018-04-29 06:34] LABS: BASOPHILS # (AUTO) 0.1 /CMM (0.0-0.2); BASOPHILS % (AUTO) 0.6 % (0.0-2.0); EOSINOPHILS % (AUTO) 1.7 % (0.0-6.0); HEMATOCRIT 46 % (33-45); HEMOGLOBIN 15.6 g/dL (11.5-14.8); LYMPHOCYTES # (AUTO) 3.3 /CMM (0.8-4.8); LYMPHOCYTES % (AUTO) 21.3 % (20.0-44.0); MEAN CORPUSCULAR HGB CONC 34 g/dl (31.0-36.0); MEAN CORPUSCULAR VOLUME 86 fL (82-100); MONOCYTES # (AUTO) 1.1 /CMM (0.1-1.30); NEUTROPHILS # (AUTO) 10.8 /CMM (1.8-8.9); NEUTROPHILS % (AUTO) 69.4 % (43.0-81.0); PLATELET COUNT (AUTO) 288 /CMM (150-450); RED BLOOD CELL COUNT(AUTO) 5.32 MIL/uL (4.0-5.2); WHITE BLOOD COUNT (AUTO) 15.5 K/uL (4.3-11.0)
--- NOTE | 2018-04-29 06:39 | NUR ---
TECH AT BEDSIDE FOR EKG
[2018-04-29 06:41] LABS: CALCIUM, SERUM 9.4 mg/dL (8.5-10.1); CARBON DIOXIDE 25 mmol/L (21-32); CHLORIDE 102 mmol/L (98-107); GLUCOSE 184 mg/dL (74-106); POTASSIUM 3.9 mmol/L (3.5-5.1); SODIUM SERUM 138 mmol/L (136-145); UREA NITROGEN, BLOOD 18 mg/dL (7-18)
[2018-04-29 06:47] LABS: ALANINE AMINOTRANSFERASE 57 U/L (12-78); ALBUMIN 3.3 g/dL (3.4-5.0); ALKALINE PHOSPHATASE 85 U/L (46-116); ASPARTATE AMINOTRANSFERASE 35 U/L (15-37); BILIRUBIN,DIRECT 0.2 mg/dL (0.0-0.2); BILIRUBIN,TOTAL 0.6 mg/dL (0.2-1.0); LIPASE 215 U/L (73-393); TOTAL PROTEIN, SERUM 7.8 g/dL (6.4-8.2)
[2018-04-29] MEDS ORDERED: CT SWABBABLE VALVE TRANS SET 1 EA INFUS.SET MC ONE (07:08)
[2018-04-29] MEDS ORDERED: IV NS 0.9% 250 ML IV ONE (07:08)
[2018-04-29] MEDS ORDERED: IOHEXOL-300 100 ML VIAL IV ONE (07:08)
--- NOTE | 2018-04-29 07:11 | NUR ---
REPORT GIVEN TO LEANN CHAWLA RN FOR MIGEL
--- NOTE | 2018-04-29 07:18 | NUR ---
RECEIVED REPORT FOR MARKUS DON, PT IS IN CT SCAN.
--- NOTE | 2018-04-29 07:29 | NUR ---
PT IS BACK FROM THE CT SCAN. AWAITING RESULT.
[2018-04-29] MEDS ORDERED: ONDANSETRON HCL/PF 4 MG/2 ML VIAL ONE (07:33)
[2018-04-29] MEDS ORDERED: MORPHINE SULFATE INJ 4 MG/ML DISP.SYRIN ONE (07:34)
--- NOTE | 2018-04-29 07:48 | NUR ---
URINE COLLECTED AND SENT LAB. AWAITING RESULT.
[2018-04-29 07:54] LABS: APPEARANCE,URINE TURBID (CLEAR); BILIRUBIN,URINE NEGATIVE (NEGATIVE); BLOOD, URINE 1+ Ery/uL (NEGATIVE); COLOR,URINE YELLOW (YELLOW); KETONES,URINE NEGATIVE (NEGATIVE); LEUKOCYTE ESTERASE ,URINE 1+ (NEGATIVE); NITRITE, URINE POSITIVE (NEGATIVE); PROTEIN,URINE 2+ mg/dl (NEGATIVE); UGLUCOSE NEGATIVE (NEGATIVE); UROBILINOGEN,URINE 0.2 EU/dL (0.2)
[2018-04-29] MEDS ORDERED: ONDANSETRON HCL/PF - ER 4 MG/2 ML VIAL IV ONE (08:00)
[2018-04-29] MEDS ORDERED: IV NS 0.9% 500 ML BAG IV ONE (08:00)
[2018-04-29] MEDS ORDERED: MORPHINE SULFATE INJ 2 MG/ML DISP.SYRIN IV ONE (08:00)
[2018-04-29 08:06] LABS: BACTERIA,URINE Many /HPF (None Seen); WBC,URINE TOO NUMEROUS TO COUN /HPF (0-3)
[2018-04-29 08:07] LABS: SQUAMOUS EPITHELIAL CELL,UR Few /HPF (None Seen)
[2018-04-29] MEDS ORDERED: TOBRAMYCIN 80 MG in IV D5W 50 ML IV ONE (08:30)
[2018-04-29] MEDS ORDERED: IV NS 0.9% 1,000 ML BAG IV ONE (09:00)
--- NOTE | 2018-04-29 09:05 | NUR ---
PAGED VILLA MARKHAM NP.
--- NOTE | 2018-04-29 10:27 | NUR ---
REPORT GIVEN TO FLORENCIA HAGAN FOR MIGEL, IV NS STILL INFUSING.
[2018-04-29] MEDS ORDERED: HYDROCODONE/APAP 5/325MG 1 EACH TABLET PO PRN (11:30)
[2018-04-29] MEDS ORDERED: ZOLPIDEM TARTRATE 5 MG TABLET PO PRN (11:30)
[2018-04-29] MEDS ORDERED: Z GUARD REMEDY 2 OZ OINT TP PRN (11:30)
--- NOTE | 2018-04-29 11:30 | NUR ---
KASIA BREAKER OPERATOR NOTES RECEIVED PT FROM ER TO ROOM 115-2 VIA GURNEY.ALERT/ORIENTED X2 WITH ANXIETY AND CONFUSION.ON TELE HR IS 100 WITH SR.ON ROOM AIR,TOLERATING WELL.NO SOB AND ACUTE DISTRESS NOTED.IV LINE IS ON LEFT HAND G20,SITE SI CLEAN,DRY AND INTACT.NO INFILTRATION NOTED.SKIN ASSESSMENT IS DONE AND NOTED WITH MILD REDNESS ON PERINEAL AND B/L KNEES.PHOTO TAKEN AND PLACED IN THE CHART.VITAL SIGNS CHECKED AND RECORDED.COMPLAINTS OF PAIN 9/10 ON ABDOMEN. SAFETY IS MAINTAINED AT ALL TIMES.BED IS IN LO POSITION AND LOCKED.CALL LIGHT IS WITHIN REACH.WILL CONTINUE TO MONITOR THE PT PAIN LEVEL.
[2018-04-29 12:00] VITALS: BP 169/81
[2018-04-29] MEDS: IV NS 0.9% 1,000 ML IV PRN (12:03)
[2018-04-29] MEDS ORDERED: DEXTROSE 50%-WATER 50 ML DISP.SYRIN IV PRN (12:30)
--- NOTE | 2018-04-29 12:30 | NUR ---
KASIA RN NOTES LAB REPORTED LACTIC ACID 3.3 AND REPORTED TO EVERETT SALINASO NOTED.
[2018-04-29] MEDS: BLOOD SUGAR DIAGNOSTIC 1 EACH STRIP IN SCH ×3 (13:03→21:49)
[2018-04-29] MEDS ORDERED: FEE PK DOSING 1 MIN EA MC ONE (14:14)
[2018-04-29 16:00] VITALS: BP 139/67
[2018-04-29] MEDS: DOCUSATE SODIUM 100 MG CAPSULE PO SCH (16:45)
[2018-04-29] MEDS: MEMANTINE HCL 5 MG TABLET PO SCH (16:45)
[2018-04-29] MEDS: METOPROLOL TARTRATE 25 MG TABLET PO SCH (16:45)
[2018-04-29] MEDS: INSULIN REGULAR, HUMAN 100 UNIT/ML 3 ML VIAL SQ PRN ×2 (16:51→21:49)
[2018-04-29] MEDS ORDERED: IV NS 0.9% 500 ML IV ONE (17:30)
[2018-04-29] MEDS: ENOXAPARIN SODIUM 40 MG/0.4 ML DISP.SYRIN SQ SCH (18:07)
--- NOTE | 2018-04-29 18:40 | NUR ---
KASIA RN NOTES FOUR H CLUB AGENT ALESSANDRO ORDERED IV NS 500 ML IN 0ML/HR AND LOVENOX 4ML SQ.NEW ORDERS NOTED AND CARRIED OUT.
--- NOTE | 2018-04-29 18:51 | NUR ---
KASIA RN CLOSING NOTES PT IS ON BED.HAD FOOD WITH MINIMAL ASSISTANCE,NO SIGNS OF ASPIRATION NOTED.PM MEDS ARE GIVEN.VITAL SIGNS ARE CHECKED AND RECORDED.NO SOB AND ACUTE DISTRESS NOTED ON ROOM AIR,TOLERATING WELL.RESPIRATION ARE EVEN AND NONLABORED.STILL COMPLAINS OF PAIN ON ABDOMEN.ENDORSED TO INSURANCE ANALYST RN FOR MIGEL.
--- NOTE | 2018-04-29 19:10 | NUR ---
TD/RN INITIAL NOTES RECEIVED PT IN BED, ALERTX1, APPEARS CONFUSED. VPACING 100% ON TELEMONITOR. ON ROOM AIR, TOLERATING WELL. NO C/O PAIN AT THIS TIME. WITH ONGOING IVF NS AT 75 ML/HR INFUSING WELL ON LFA G20 IV. HOB ELEVATED. SAFETY MEASURES IN PLACED. CALL LIGHT WITHIN EASY REACH. WILL CONT TO MONITOR
[2018-04-29 20:00] VITALS: BP 163/74
[2018-04-29] MEDS: GABAPENTIN 400 MG CAPSULE PO SCH (20:35)
[2018-04-29] MEDS: ACETAMINOPHEN 325 MG TABLET PO PRN (20:36)
--- NOTE | 2018-04-29 21:00 | NUR ---
RN NOTES RECHECKED TEMPT=98.8, IN=506/77
[2018-04-29] MEDS: ATORVASTATIN 10 MG TABLET PO SCH (21:17)
[2018-04-30] VITALS: BP 135/64
[2018-04-30 04:00] VITALS: BP 137/71
[2018-04-30] MEDS: IV NS 0.9% 1,000 ML IV PRN ×2 (06:11→19:33)
--- NOTE | 2018-04-30 07:05 | NUR ---
RN NOTES RECEIVED PT ON BED, ALERT/ CONFUSED. ON RA , RESPIRATION EVEN AN UNLABORED, ON TELE SR WITH PVC'S AT THIS TIME, NO DISTRESS NOTED, IVF NS AT 75 ML/HR INFUSING VIA L FA IV SITE G 20 , SITE CLEAN, DRY AND INTACT, HOB ELEVATED. SR UP X3, CALL LIGHT WITHIN EASY REACH, BED LOCKED AND IN LOWEST POSITION, SAFETY MEASURES IN PLACED. CONT TO MONITOR.
--- NOTE | 2018-04-30 07:05 | NUR ---
RN NOTES PT IN STABLE CONDITION. NO ACUTE CHANGES THROUGHOUT SHIFT. ALL NEEDS ANTICIPATED. SAFETY MEASURES OBSERVED AT ALL TIMES. ENDORSED TO AM SHIFT RN FOR MIGEL
[2018-04-30 08:00] VITALS: BP 123/82
[2018-04-30] MEDS: BLOOD SUGAR DIAGNOSTIC 1 EACH STRIP IN SCH ×4 (08:41→21:29)
[2018-04-30] MEDS: DOCUSATE SODIUM 100 MG CAPSULE PO SCH ×2 (08:41→16:19)
[2018-04-30] MEDS: CYANOCOBALAMIN 500 MCG TABLET PO SCH (08:41)
[2018-04-30] MEDS: ASPIRIN EC 81 MG TABLET.DR PO SCH (08:42)
[2018-04-30] MEDS: METOPROLOL TARTRATE 25 MG TABLET PO SCH ×2 (08:43→16:20)
[2018-04-30] MEDS: GABAPENTIN 400 MG CAPSULE PO SCH ×2 (08:44→21:30)
[2018-04-30] MEDS: MEMANTINE HCL 5 MG TABLET PO SCH ×2 (08:44→16:19)
[2018-04-30] MEDS: TOBRAMYCIN 80 MG in IV D5W 50 ML IV SCH (09:05)
[2018-04-30 09:24] LABS: BASOPHILS # (AUTO) 0.1 /CMM (0.0-0.2); BASOPHILS % (AUTO) 0.7 % (0.0-2.0); EOSINOPHILS % (AUTO) 2.9 % (0.0-6.0); HEMATOCRIT 43 % (33-45); HEMOGLOBIN 14.5 g/dL (11.5-14.8); LYMPHOCYTES # (AUTO) 3.3 /CMM (0.8-4.8); LYMPHOCYTES % (AUTO) 32.2 % (20.0-44.0); MEAN CORPUSCULAR HGB CONC 34 g/dl (31.0-36.0); MEAN CORPUSCULAR VOLUME 87 fL (82-100); MONOCYTES # (AUTO) 0.8 /CMM (0.1-1.30); MONOCYTES % (AUTO) 7.6 % (2.0-12.0); NEUTROPHILS # (AUTO) 5.9 /CMM (1.8-8.9); NEUTROPHILS % (AUTO) 56.6 % (43.0-81.0); PLATELET COUNT (AUTO) 249 /CMM (150-450); WHITE BLOOD COUNT (AUTO) 10.4 K/uL (4.3-11.0)
[2018-04-30 09:36] LABS: CHOLESTEROL 136 mg/dL (<200); HDL CHOLESTEROL 36 mg/dL (40-60); LDL 83 mg/dL (0-99); TRIGLYCERIDES 142 mg/dL (30-150)
[2018-04-30 09:43] LABS: CALCIUM, SERUM 8.3 mg/dL (8.5-10.1); CARBON DIOXIDE 25 mmol/L (21-32); CHLORIDE 104 mmol/L (98-107); CREATININE 0.9 mg/dL (0.6-1.3); GLUCOSE 183 mg/dL (74-106); MAGNESIUM 1.9 mg/dL (1.8-2.4); PHOSPHORUS 2.4 mg/dL (2.5-4.9); POTASSIUM 3.8 mmol/L (3.5-5.1); SODIUM SERUM 136 mmol/L (136-145); UREA NITROGEN, BLOOD 13 mg/dL (7-18)
[2018-04-30] MEDS: INSULIN REGULAR, HUMAN 100 UNIT/ML 3 ML VIAL SQ PRN ×2 (11:38→21:29)
[2018-04-30 12:00] VITALS: BP_SYST 131; BP_SYST 142; BP_DIAS 68; BP_DIAS 79
[2018-04-30] MEDS ORDERED: K PHOS NEUTRAL 250 MG TABLET PO ONE (12:00)
--- NOTE | 2018-04-30 12:00 | NUR ---
RN NOTES PT STABLE, IVF NS AT 75CC/HR RUNNING , SR UP X3, CALL LIGHT WITHIN EASY REACH, BED LOCKED AND IN LOWEST POSITION, WILL ENDOSE TO CLIENT SERVICE REPRESENTATIVE NURSE FOR CONTINUITY OF CARE . Addendum: 04/30/18 at 1901 by PRETTY CONRAD RN ABOVE CHARTING IS FOR 19:01
[2018-04-30 16:00] VITALS: BP 149/78
--- NOTE | 2018-04-30 16:39 | NUR ---
Patient resides at [facility] [phone].She is altered, poor historian and requires max assist with adl's.Current dc plan is to return to . Addendum: 04/30/18 at 1639 by ROBERTO CARLOS SUAREZ RN Amended: Links added.
--- NOTE | 2018-04-30 19:01 | NUR ---
RN NOTES PT STABLE, IVF NS AT 75CC/HR RUNNING , SR UP X3, CALL LIGHT WITHIN EASY REACH, BED LOCKED AND IN LOWEST POSITION, WILL ENDOSE TO DIGITAL ASSOCIATE NURSE FOR CONTINUITY OF CARE .
[2018-04-30 20:00] VITALS: BP 152/73
[2018-04-30] MEDS: ENOXAPARIN SODIUM 40 MG/0.4 ML DISP.SYRIN SQ SCH (21:29)
[2018-04-30] MEDS: ATORVASTATIN 10 MG TABLET PO SCH (21:30)
[2018-04-30] MEDS: ACETAMINOPHEN 325 MG TABLET PO PRN (21:30)
[2018-05-01 04:00] VITALS: BP 155/80
--- NOTE | 2018-05-01 07:30 | NUR ---
INITIal RECEIVED PT IN BED, ALERTX1, APPEARS CONFUSED. VPACING 100% ON TELEMONITOR. ON ROOM AIR, TOLERATING WELL. NO C/O PAIN AT THIS TIME. WITH ONGOING IVF NS AT 75 ML/HR INFUSING WELL ON LFA G20 IV. HOB ELEVATED. SAFETY MEASURES IN PLACED. CALL LIGHT WITHIN EASY REACH. WILL CONT TO MONITOR
[2018-05-01] MEDS: BLOOD SUGAR DIAGNOSTIC 1 EACH STRIP IN SCH ×4 (07:42→22:11)
[2018-05-01] MEDS: INSULIN REGULAR, HUMAN 100 UNIT/ML 3 ML VIAL SQ PRN ×4 (07:52→22:17)
[2018-05-01 08:00] VITALS: BP 181/85
[2018-05-01] MEDS: ASPIRIN EC 81 MG TABLET.DR PO SCH (08:06)
[2018-05-01] MEDS: ONDANSETRON HCL/PF 4 MG/2 ML VIAL IVP PRN ×2 (08:06→10:50)
[2018-05-01] MEDS: GABAPENTIN 400 MG CAPSULE PO SCH ×2 (08:06→22:10)
[2018-05-01] MEDS: DOCUSATE SODIUM 100 MG CAPSULE PO SCH ×2 (08:07→16:51)
[2018-05-01] MEDS: MEMANTINE HCL 5 MG TABLET PO SCH ×2 (08:08→16:51)
[2018-05-01] MEDS: CYANOCOBALAMIN 500 MCG TABLET PO SCH (08:08)
[2018-05-01] MEDS: METOPROLOL TARTRATE 25 MG TABLET PO SCH ×2 (08:21→16:51)
[2018-05-01 08:24] LABS: CALCIUM, SERUM 8.9 mg/dL (8.5-10.1); CARBON DIOXIDE 26 mmol/L (21-32); CHLORIDE 104 mmol/L (98-107); CREATININE 0.9 mg/dL (0.6-1.3); GLUCOSE 126 mg/dL (74-106); MAGNESIUM 2.1 mg/dL (1.8-2.4); PHOSPHORUS 2.7 mg/dL (2.5-4.9); POTASSIUM 3.8 mmol/L (3.5-5.1); SODIUM SERUM 138 mmol/L (136-145); UREA NITROGEN, BLOOD 14 mg/dL (7-18)
[2018-05-01] MEDS ORDERED: DULOXETINE HCL 20 MG CAPSULE.DR PO SCH (09:00)
[2018-05-01 10:33] LABS: BASOPHILS % (AUTO) 0.4 % (0.0-2.0); EOSINOPHILS % (AUTO) 2.5 % (0.0-6.0); HEMATOCRIT 43 % (33-45); HEMOGLOBIN 14.7 g/dL (11.5-14.8); LYMPHOCYTES # (AUTO) 2.2 /CMM (0.8-4.8); LYMPHOCYTES % (AUTO) 20.4 % (20.0-44.0); MEAN CORPUSCULAR HGB CONC 34 g/dl (31.0-36.0); MEAN CORPUSCULAR VOLUME 86 fL (82-100); MONOCYTES # (AUTO) 0.8 /CMM (0.1-1.30); MONOCYTES % (AUTO) 6.9 % (2.0-12.0); NEUTROPHILS # (AUTO) 7.6 /CMM (1.8-8.9); NEUTROPHILS % (AUTO) 69.8 % (43.0-81.0); PLATELET COUNT (AUTO) 266 /CMM (150-450); RED BLOOD CELL COUNT(AUTO) 4.99 MIL/uL (4.0-5.2); WHITE BLOOD COUNT (AUTO) 10.9 K/uL (4.3-11.0)
[2018-05-01] MEDS: TOBRAMYCIN 80 MG in IV D5W 50 ML IV SCH (10:50)
[2018-05-01] MEDS ORDERED: BISACODYL SUPP (10 MG) 10 MG/SUPP.RECT SUPP.RECT RC PRN (11:00)
[2018-05-01 12:00] VITALS: BP 181/88
--- NOTE | 2018-05-01 18:55 | NUR ---
SUMMARY PT IS ON BED.HAD FOOD WITH MINIMAL ASSISTANCE,NO SIGNS OF ASPIRATION NOTED.PM MEDS ARE GIVEN.VITAL SIGNS ARE CHECKED AND RECORDED.NO SOB AND ACUTE DISTRESS NOTED ON ROOM AIR,TOLERATING WELL.RESPIRATION ARE EVEN AND NONLABORED.STILL COMPLAINS OF PAIN PT GIEN SUPPOSITRY NO BOWEL MOVEMENT
[2018-05-01 20:00] VITALS: BP 158/89
[2018-05-01] MEDS: ENOXAPARIN SODIUM 40 MG/0.4 ML DISP.SYRIN SQ SCH (22:10)
[2018-05-01] MEDS: ATORVASTATIN 10 MG TABLET PO SCH (22:10)
[2018-05-01] MEDS: IV NS 0.9% 1,000 ML IV PRN (22:40)
[2018-05-02 04:00] VITALS: BP 150/81
[2018-05-02 07:00] LABS: BASOPHILS % (AUTO) 0.5 % (0.0-2.0); EOSINOPHILS % (AUTO) 3.7 % (0.0-6.0); HEMATOCRIT 41 % (33-45); HEMOGLOBIN 13.7 g/dL (11.5-14.8); LYMPHOCYTES # (AUTO) 3.1 /CMM (0.8-4.8); LYMPHOCYTES % (AUTO) 33.2 % (20.0-44.0); MEAN CORPUSCULAR HGB CONC 34 g/dl (31.0-36.0); MEAN CORPUSCULAR VOLUME 86 fL (82-100); MONOCYTES # (AUTO) 0.9 /CMM (0.1-1.30); MONOCYTES % (AUTO) 9.2 % (2.0-12.0); NEUTROPHILS # (AUTO) 4.9 /CMM (1.8-8.9); NEUTROPHILS % (AUTO) 53.4 % (43.0-81.0); PLATELET COUNT (AUTO) 257 /CMM (150-450); RED BLOOD CELL COUNT(AUTO) 4.73 MIL/uL (4.0-5.2); WHITE BLOOD COUNT (AUTO) 9.2 K/uL (4.3-11.0)
[2018-05-02 07:05] LABS: CALCIUM, SERUM 8.2 mg/dL (8.5-10.1); CARBON DIOXIDE 25 mmol/L (21-32); CHLORIDE 104 mmol/L (98-107); GLUCOSE 178 mg/dL (74-106); MAGNESIUM 1.9 mg/dL (1.8-2.4); PHOSPHORUS 2.4 mg/dL (2.5-4.9); POTASSIUM 3.6 mmol/L (3.5-5.1); SODIUM SERUM 137 mmol/L (136-145); UREA NITROGEN, BLOOD 12 mg/dL (7-18)
--- NOTE | 2018-05-02 07:14 | NUR ---
MS RN OPENING NOTE' RECEIVED PATIENT IN BED. SLEEPING, EASILY AROUSED WITH VERBAL STIMULI. ORIENTED TO NAME. CONFUSED. ON 2L O2 VIA NC, TOLERATING WELL. IN NO APPARENT DISTRESS OR DISCOMFORT AT THIS TIME. RESPIRATIONS EVEN AND UNLABORED. DENIES PAIN AND SOB. LEFT FA 20G IVC WITH FLUIDS RUNNING AT 75ML/HR, PATENT AND INTACT. USES DIAPER FOR ELIMINATION. PATIENT KEPT CLEAN AND COMFORTABLE. ALL NEEDS ATTENDED, SAFETY MEASURES IN PLACE, BED IN LOW LOCKED POSITION, SIDE RAILS UP X2, CALL LIGHT WITHIN EASY REACH. WILL CONTINUE TO MONITOR.
[2018-05-02 08:00] VITALS: BP 154/90
[2018-05-02] MEDS: BLOOD SUGAR DIAGNOSTIC 1 EACH STRIP IN SCH ×2 (08:32→12:24)
[2018-05-02] MEDS ORDERED: K PHOS NEUTRAL 250 MG TABLET PO ONE (09:00)
[2018-05-02] MEDS: GABAPENTIN 400 MG CAPSULE PO SCH (09:30)
[2018-05-02] MEDS: ASPIRIN EC 81 MG TABLET.DR PO SCH (09:30)
[2018-05-02] MEDS: DOCUSATE SODIUM 100 MG CAPSULE PO SCH ×2 (09:30→16:20)
[2018-05-02] MEDS: CYANOCOBALAMIN 500 MCG TABLET PO SCH (09:31)
[2018-05-02] MEDS: MEMANTINE HCL 5 MG TABLET PO SCH ×2 (09:31→16:21)
[2018-05-02] MEDS: METOPROLOL TARTRATE 25 MG TABLET PO SCH ×2 (09:32→16:21)
[2018-05-02] MEDS: INSULIN REGULAR, HUMAN 100 UNIT/ML 3 ML VIAL SQ PRN ×2 (09:34→12:29)
[2018-05-02] MEDS: TOBRAMYCIN 80 MG in IV D5W 50 ML IV SCH (09:42)
[2018-05-02] MEDS: IV NS 0.9% 1,000 ML IV PRN (12:30)
[2018-05-02] MEDS ORDERED: SULF1TAB48 PO (12:59)
[2018-05-02 16:21] VITALS: BP 146/74
--- NOTE | 2018-05-02 17:10 | NUR ---
MS STRETCHER OPERATOR NOTE RECEIVED ORDER FOR DC FROM DR. HOROWITZ. PATIENT IS BEING DISCHARGED TO [facility]. PATIENT IS STABLE. VITAL SIGNS STABLE. ON 2L O2 VIA NC, TOLERATING WELL. IN NO APPARENT DISTRESS OR DISCOMFORT AT THIS TIME. RESPIRATIONS EVEN AND UNLABORED. PATIENT IS ALERT ORIENTED TO NAME ONLY. CONFUSED AND FORGETFUL, BUT COMPLIANT. DISCHARGE PAPERWORK PREPARED VIA [employer]. PATIENT IS UNABLE TO LEARN TEACHINGS. PATIENT WILL BE UNDER CARE OF SKILLED NURSES AT THE FACILITY. ALL EDUCATION MATERIAL ATTACHED WITH DISCHARGE PAPERWORK. MEDICATION LIST PROVIDED. BELONGINGS CHECKED AND VERIFIED WITH FLORENCIA PORTER. ALL PAPERWORK COSIGNED BY PRIMARY RN AND RAILCAR MECHANIC [place] DUE TO PATIENT'S COGNITIVE STATUS. UNABLE TO ADMINISTER VACCINATIONS PATIENT CANNOT RECALL IF SHE RECEIVED THEM PREVIOUSLY. SKIN ASSESSMENT COMPLETE. NO NEW IMPAIRMENTS NOTED, SKIN IS INTACT. OLD SKIN PROBLEMS WAS RECORDED, PICTURES TAKEN PLACED IN CHART. PERIPHERAL IV WAS REMOVED TIP INTACT. ALL DUE MEDICATIONS GIVEN PRIOR TO DISCHARGE. ID BAND REMOVED. PATIENT LEFT THE UNIT ON ON A GURNEY VIA AMBULANCE AT 1710. REPORT GIVEN TO GARY DON AT [facility]. PATIENT IS GOING TO ROOM 24B.
== END 2018-05-02 17:10 | DRG 872 ==
LOC: ER 06:07 → TELE-TD 10:26 → MEDSG1 04-30 12:11
PROVIDERS: ADMIT Nurse Practitioner Acute Care
DX: A41.9 Sepsis, unspecified organism (principal); E44.1 Mild protein-calorie malnutrition; N39.0 Urinary tract infection, site not specified; D68.59 Other primary thrombophilia; E78.5 Hyperlipidemia, unspecified; F03.90 Unspecified dementia, unspecified severity, without behavioral disturbance, psychotic disturbance, mood disturbance, and anxiety; I16.0 Hypertensive urgency; I25.10 Atherosclerotic heart disease of native coronary artery without angina pectoris; K21.9 Gastro-esophageal reflux disease without esophagitis; Z68.28 Body mass index [BMI] 28.0-28.9, adult; E11.65 Type 2 diabetes mellitus with hyperglycemia; K57.30 Diverticulosis of large intestine without perforation or abscess without bleeding; K44.9 Diaphragmatic hernia without obstruction or gangrene; B96.20 Unspecified Escherichia coli [E. coli] as the cause of diseases classified elsewhere; M81.0 Age-related osteoporosis without current pathological fracture; Z88.0 Allergy status to penicillin; I10 Essential (primary) hypertension
CPT/HCPCS: 36415; 71045-TC; 80048-TC; 80061-TC; 80076-TC; 81000-TC; 82962-TC; 83605-TC; 83690-TC; 83735-TC; 84100-TC; 84484-TC; 85025-TC; 85730-TC; 87040-TC; 87081-TC; 87086-TC; 87186-TC; G0378; J1650; J1815; J2270; J2405; J3260; J7030; J7040; J7050; J7060; Q9967